=== PATIENT | female | born 1935 | race Caucasian/White ===

== ENCOUNTER 2017-04-12 13:25 | Inpatient (IN) | payer OTHER, MEDICARE ==
[2017-04-12] MEDS ORDERED: ACETAMINOPHEN 500 MG TAB PO ONE (14:11)
[2017-04-12] MEDS ORDERED: IPRATROPIUM/ALBUTEROL 3 ML DEYVIAL IH ONE (14:11)
--- NOTE | 2017-04-12 14:11 | EDPHY ---
H & P Time Seen by Provider: 04/12/17 13:54 HPI/ROS: Chief complaint. Cough, fever HPI. 81-year-old female presents emergency department with complaint of cough and some shortness of breath. She has had upper respiratory infection for the past several weeks. However today increased shortness of breath and fever. She tells me she has had a cough for 10 months. Now cough is slightly productive. No sore throat. Heaviness in her chest. Abdomen is slightly bloated for several months. No pain however vomiting or diarrhea. No sick contacts or recent travel. No history of lung problems other than the chronic cough ROS Constitutional. Fever and weakness Eyes. no problems with vision ENT. no sore throat, no nasal drainage Cardiovascular. Heaviness to chest Respiratory. Shortness of breath and cough Abdominal. no abdominal pain, no nausea/vomiting, no diarrhea . no problems urinating MS. no calf pain/swelling, no neck/back pain, no joint pain Skin. no rash Lymph. no swollen glands Neuro. no headache, no dizziness, no difficulty walking or with speech Past Medical/Surgical History: Coronary artery disease with stents Social History: , nonsmoker, no alcohol Smoking Status: Never smoked Physical Exam: General Appearance: Alert well-developed female moderate distress vital signs show temperature 38.3degrees, heart rate 122, O2 saturation room air 88%. Blood pressure 114/86 Eyes: Pupils equal and round no pallor or injection. ENT, pharynx mildly injected without exudate Respiratory: No retractions but inspiratory expiratory rhonchi Cardiovascular: Regular rate and rhythm with tachycardia Gastrointestinal: Abdomen is soft and nontender, no masses, bowel sounds normal. Neurological: Awake and alert, sensory and motor exams grossly normal. Skin: Warm and dry, no rashes. Musculoskeletal: Neck is supple nontender. Extremities symmetrical, full range of motion. Psychiatric: Patient is oriented X 3, there is no agitation. Constitutional: Initial Vital Signs Temperature (C) 38.3 C 04/12/17 13:31 Heart Rate 122 H 04/12/17 13:31 Respiratory Rate 20 04/12/17 13:31 Blood Pressure 114/86 H 04/12/17 13:31 O2 Sat (%) 88 L 04/12/17 13:31 O2 Delivery Mode Room Air Allergies/Adverse Reactions: No Known Allergies Allergy (Unverified 11/05/12 14:58) Home Medications: Medication Instructions Recorded Lipitor 04/12/17 Metoprolol Succinate 04/12/17 PRILOSEC 04/12/17 Plavix 04/12/17 Xalatan 04/12/17 Medical Decision Making - Diagnostics EKG Interpretation: EKG interpreted by me shows sinus tachycardia. Normal interval. Left axis deviation. QRS is otherwise normal. No significant ST elevation or depression. Rate is 127 Imaging Results: Chest x-ray interpreted by me shows right lower lobe infiltrate Procedures: IV normal saline, DuoNeb updraft. Sepsis workup ED Course/Re-evaluation: Severe sepsis declared at 2:35 p.m.--patient is given fluids. Repeat lactate is ordered. Rocephin and azithromycin IV are ordered I consulted and discussed the case with , hospitalist, who agrees to the admission I discussed the findings and treatment plan including recommendation patient for admission with patient and her family. They expressed understanding and agreement Differential Diagnosis: Patient has upper respiratory symptoms. She also had chest discomfort. She has fever and meet sepsis criteria with elevated lactate. I have considered pneumonia, bronchitis. I considered acute coronary syndrome as well - Data Points Laboratory Results: Laboratory Results 04/12/17 13:41 04/12/17 13:41 04/12/17 04/12/17 04/12/17 13:41 13:41 13:41 WBC RBC Hgb Hct MCV MCH MCHC RDW Plt Count MPV Neut % (Auto) Lymph % (Auto) Green % (Auto) Eos % (Auto) Baso % (Auto) Nucleat RBC Rel Count Absolute Neuts (auto) Absolute Lymphs (auto) Absolute Monos (auto) Absolute Eos (auto) Absolute Basos (auto) Absolute Nucleated RBC Immature Gran % Immature Gran # PT 14.1 SEC SEC (12.0-15.0) INR 1.12 (0.83-1.16) APTT 28.1 SEC SEC (23.0-38.0) VBG Lactic Acid Sodium 141 mEq/L mEq/L (134-144) Potassium 3.6 mEq/L mEq/L (3.5-5.2) Chloride 105 mEq/L mEq/L (97-110) Carbon Dioxide 21 mEq/l L mEq/l (22-31) Anion Gap 15 mEq/L mEq/L (8-16) BUN 20 mg/dL mg/dL (7-23) Creatinine 0.7 mg/dL mg/dL (0.6-1.0) Estimated GFR > 60 Glucose 173 mg/dL H mg/dL (70-100) Calcium 9.3 mg/dL mg/dL (8.5-10.4) Total Bilirubin 2.3 mg/dL H mg/dL (0.1-1.4) Conjugated Bilirubin Pending Unconjugated Bilirubin Pending Troponin I 0.029 ng/mL ng/mL (0.000-0.034) 04/12/17 04/12/17 13:41 13:41 WBC 16.42 10^3/uL H 10^3/uL (3.80-9.50) RBC 5.25 10^6/uL 10^6/uL (4.18-5.33) Hgb 16.5 g/dL H g/dL (12.6-16.3) Hct 47.7 % H % (38.0-47.0) MCV 90.9 fL fL (81.5-99.8) MCH 31.4 pg pg (27.9-34.1) MCHC 34.6 g/dL g/dL (32.4-36.7) RDW 12.5 % % (11.5-15.2) Plt Count 148 10^3/uL L 10^3/uL (150-400) MPV 11.8 fL H fL (8.7-11.7) Neut % (Auto) 91.5 % H % (39.3-74.2) Lymph % (Auto) 2.0 % L % (15.0-45.0) Green % (Auto) 5.8 % % (4.5-13.0) Eos % (Auto) 0.0 % L % (0.6-7.6) Baso % (Auto) 0.2 % L % (0.3-1.7) Nucleat RBC Rel Count 0.0 % % (0.0-0.2) Absolute Neuts (auto) 15.03 10^3/uL H 10^3/uL (1.70-6.50) Absolute Lymphs (auto) 0.33 10^3/uL L 10^3/uL (1.00-3.00) Absolute Monos (auto) 0.95 10^3/uL H 10^3/uL (0.30-0.80) Absolute Eos (auto) 0.00 10^3/uL L 10^3/uL (0.03-0.40) Absolute Basos (auto) 0.03 10^3/uL 10^3/uL (0.02-0.10) Absolute Nucleated RBC 0.00 10^3/uL 10^3/uL (0-0.01) Immature Gran % 0.5 % % (0.0-1.1) Immature Gran # 0.08 10^3/uL 10^3/uL (0.00-0.10) PT INR APTT VBG Lactic Acid 2.2 mmol/L H mmol/L (0.7-2.1) Sodium Potassium Chloride Carbon Dioxide Anion Gap BUN Creatinine Estimated GFR Glucose Calcium Total Bilirubin Conjugated Bilirubin Unconjugated Bilirubin Troponin I Medications Given: Discontinued Medications Acetaminophen (Tylenol) 1,000 mg PO EDNOW ONE Stop: 04/12/17 14:12 Last Admin: 04/12/17 14:22 Dose: 1,000 mg Albuterol/Ipratropium (Duoneb) 3 ml IH EDNOW ONE Stop: 04/12/17 14:12 Last Admin: 04/12/17 14:22 Dose: 3 ml Departure - Departure Disposition: [facility] Inpatient Acute Clinical Impression: Severe sepsis Pneumonia Qualifiers: Pneumonia type: due to unspecified organism Laterality: right Lung location: lower lobe of lung Qualified Code(s): J18.1 - Lobar pneumonia, unspecified organism Condition: Fair Referrals: IN,STATE [Other] - As per Instructions
[2017-04-12 14:12] LABS: % IMMATURE GRANULYOCYTES 0.5 % (0.0-1.1); ABSOLUTE IMMATURE GRANULOCYTES 0.08 10^3/uL (0.00-0.10); ADD DIFF? NO; ADD MORPH? NO; ADD SCAN? NO; ATYPICAL LYMPHOCYTE FLAG 0 (0-99); FRAGMENT RBC FLAG 0 (0-99); HEMATOCRIT 47.7 % (38.0-47.0); HEMOGLOBIN 16.5 g/dL (12.6-16.3); LEFT SHIFT FLG 10 (0-99); LIPEMIA HEMOLYSIS FLAG 90 (0-99); MEAN CELL HEMOGLOBIN 31.4 pg (27.9-34.1); MEAN CELL HEMOGLOBIN CONCENTR. 34.6 g/dL (32.4-36.7); MEAN CELL VOLUME 90.9 fL (81.5-99.8); MEAN PLATELET VOLUME 11.8 fL (8.7-11.7); PLATELET CLUMPS FLAG 0 (0-99); PLATELET COUNT 148 10^3/uL (150-400); RED BLOOD CELL COUNT 5.25 10^6/uL (4.18-5.33); RED CELL DISTRIBUTION WIDTH 12.5 % (11.5-15.2)
[2017-04-12 14:20] LABS: INR 1.12 (0.83-1.16); PROTIME(PATIENT) 14.1 SEC (12.0-15.0)
[2017-04-12 14:21] LABS: APTT 28.1 SEC (23.0-38.0)
--- NOTE | 2017-04-12 14:26 | CPEKG ---
Heart Rate: 127 RR Interval: 472 P-R Interval: 112 QRSD Interval: 76 QT Interval: 324 QTC Interval: 472 P [place]: -16 QRS [place]: 13 T Wave [place]: -44 EKG Severity - ABNORMAL ECG - EKG Impression: SINUS TACHYCARDIA EKG Impression: ATRIAL PREMATURE COMPLEX EKG Impression: PROBABLE INFERIOR INFARCT, AGE INDETERMINATE EKG Impression: CONSIDER POSTERIOR WALL INVOLVEMENT EKG Impression: REPOLARIZATION ABNORMALITY, PROB RATE RELATED EKG Impression: LATERAL LEADS ARE ALSO INVOLVED Electronically Signed By: Lino Jernigan 12-Apr-2017 15:02:18
[2017-04-12] MEDS ORDERED: NS 2,000 ML IV ONE (14:36)
[2017-04-12] MEDS ORDERED: AZITHROMYCIN IV 500 MG in NS 250 ML IV ONE (14:38)
[2017-04-12 14:40] LABS: ANION GAP 15 mEq/L (8-16); BILIRUBIN,TOTAL 2.3 mg/dL (0.1-1.4); CALCIUM 9.3 mg/dL (8.5-10.4); CARBON DIOXIDE 21 mEq/l (22-31); CHLORIDE 105 mEq/L (97-110); CREATININE 0.7 mg/dL (0.6-1.0); GLOMERULAR FILTRATION RATE > 60; GLUCOSE 173 mg/dL (70-100); POTASSIUM 3.6 mEq/L (3.5-5.2); SODIUM 141 mEq/L (134-144)
[2017-04-12 14:49] LABS: BILIRUBIN-CONJUGATED 0.7 mg/dL (0.0-0.5); BILIRUBIN-UNCONJUGATED 1.6 mg/dL (0.0-1.1)
[2017-04-12 18:34] LABS: TROPONIN I 0.035 ng/mL (0.000-0.034)
--- NOTE | 2017-04-12 20:25 | GHP ---
[f rep st] HISTORY AND PHYSICAL DATE OF ADMISSION: 04/12/2017 CHIEF COMPLAINT: Cough and shortness of breath. HISTORY: This patient is an 81-year-old female who has been suffering from an upper respiratory trac t infection for a couple of weeks. She actually complains of chronic cough since last June. She has had worsening congestion for the last 2 days. Daughter went to visit her this afternoon, and fo und her at home confused. She has a fever and new hoarse voice. She does complain of some chest tig htness, but she attributes this to the cough, and says it has been ongoing since she started coughing last June. Cough is nonproductive. PAST MEDICAL HISTORY: 1. Coronary artery disease, status post stents 2 years ago. 2. Breast cancer, status post lumpectomy and radiation. MEDICATIONS: Please see computer record for full detailed list. ALLERGIES: No known drug allergies. SOCIAL HISTORY: No smoking. Occasional alcohol. She lives with her . REVIEW OF SYSTEMS: Complete review of systems obtained. Review of systems is negative regarding con stitutional, HEENT, GI, pulmonary, cardiovascular, , hematology, skin, muscular, endocrine, psych. For positives, as under HPI. FAMILY HISTORY: Reviewed, noncontributory to presenting complaint. PHYSICAL EXAMINATION: GENERAL: Well-developed, well-nourished female, in no distress. VITAL SIGNS: Temperature 38.3, pulse 127, blood pressure 134/83, saturating 96% on 1 L. HEENT: Normal conjunct brian. Pupils react to light. Normal ears and nose. Hearing intact. Normal teeth. Oropharynx moist . NECK: Trachea midline. No thyromegaly. CHEST: Normal effort. LUNGS: Clear to auscultation bi laterally. CARDIOVASCULAR: Regular rhythm. No murmur. No lower extremity edema. ABDOMEN: Soft, nontender. No hepatosplenomegaly. SKIN: Warm, dry, intact. No rash. MUSCULOSKELETAL: No cyanosi s or clubbing. Strength 5/5, upper and lower extremities. NEUROLOGIC: Cranial nerves intact. Norm al sensation to light touch. PSYCH: She is confused. She is having a difficult time answering simp le questions. Poor judgment and insight. Poor memory. LABORATORY DATA: White count 16.42, hematocrit 47.7, platelets 148, sodium 141, potassium 3.6, chlor milton 105, bicarb 21, BUN 20, creatinine 0.7, glucose 173. Troponin was initially 0.29, the 2nd was 0. 035. Lactate initially 2.29 and 1.6. Total bilirubin 2.3. Unconjugated bilirubin 1.6. EKG viewed by me. My personal interpretation is sinus tachycardia, some inferior ST elevations and l ateral ST depressions. Chest x-ray, per my interpretation, personally viewed by me, there is a right lower lobe infiltrate. ASSESSMENT AND PLAN: 1. Pneumonia with severe sepsis. We will continue Rocephin and azithromycin. She received an appro priate IV fluid bolus in the emergency room. Her lactate is improving. 2. Metabolic encephalopathy. She is quite confused and not at her baseline. This is clearly due to her infection. 3. EKG changes with borderline troponin elevation. I did have Dr. Mata look at the EKGs to ensu re there was no acute myocardial infarction. He felt the EKGs are most consistent with an old inferi or myocardial infarction. He did not think anything more aggressive needed to be done at this time. We will continue her Plavix, statin, and metoprolol. 4. Coronary artery disease, status post previous stents. She follows with Dr. Lutz at [facility]. Please see plan as discussed above. CODE STATUS: Full. ADMISSION STATUS: Will admit to inpatient. Anticipate greater than 2 midnights, given severity of i llness on presentation. DVT PROPHYLAXIS: High risk. Will place on subcu Lovenox. /[id number]/MODL
[2017-04-12] MEDS ORDERED: FLU VACC QS 2017-18 (3YR+)/PF 0.5 ML SYR (FLUARIX QUAD) IM ONE (21:03)
[2017-04-12] MEDS: LATANOPROST 0.005% 2.5 ML OPHT DROPS EACHEYE SCH (21:19)
[2017-04-12] MEDS: FLUTICASONE NASAL 120 SPRAYS/16 GM MDI EACHNARE SCH (22:12)
--- NOTE | 2017-04-13 00:11 | PDMN ---
Medical Necessity Medical necessity: C/M review: est. > 2 MN LOS for eval and TX of acute and persistent pneumonia with severe sepsis, metabolic encephalopathy, EKG changes with borderline troponin elevation requiring ongoing cardiac monitoring, IV antibiotics, acute inpt PT/OT/ST, comorbid CAD S/P stents, hx breast cancer S/P lumpectomy and radiation.
[2017-04-13] MEDS ORDERED: ALBUTEROL 3 ML DEYVIAL IH PRN (00:18)
[2017-04-13 05:52] LABS: % IMMATURE GRANULYOCYTES 0.3 % (0.0-1.1); ABSOLUTE IMMATURE GRANULOCYTES 0.03 10^3/uL (0.00-0.10); ADD DIFF? NO; ADD MORPH? NO; ADD SCAN? NO; ATYPICAL LYMPHOCYTE FLAG 10 (0-99); FRAGMENT RBC FLAG 0 (0-99); HEMATOCRIT 42.7 % (38.0-47.0); HEMOGLOBIN 14.3 g/dL (12.6-16.3); LEFT SHIFT FLG 10 (0-99); LIPEMIA HEMOLYSIS FLAG 80 (0-99); MEAN CELL HEMOGLOBIN 31.8 pg (27.9-34.1); MEAN CELL HEMOGLOBIN CONCENTR. 33.5 g/dL (32.4-36.7); MEAN CELL VOLUME 94.9 fL (81.5-99.8); MEAN PLATELET VOLUME 11.4 fL (8.7-11.7); PLATELET CLUMPS FLAG 0 (0-99); PLATELET COUNT 114 10^3/uL (150-400); RED CELL DISTRIBUTION WIDTH 12.5 % (11.5-15.2)
[2017-04-13 06:08] LABS: ALANINE AMINOTRANSFERASE 31 IU/L (9-52); ALBUMIN 3.4 g/dL (3.5-5.0); ALKALINE PHOSPHATASE 55 IU/L (38-126); ANION GAP 9 mEq/L (8-16); ASPARTATE AMINOTRANSFERASE 37 IU/L (14-46); BILIRUBIN,TOTAL 1.6 mg/dL (0.1-1.4); BILIRUBIN-CONJUGATED 0.4 mg/dL (0.0-0.5); BILIRUBIN-UNCONJUGATED 1.2 mg/dL (0.0-1.1); CALCIUM 8.7 mg/dL (8.5-10.4); CARBON DIOXIDE 24 mEq/l (22-31); CHLORIDE 109 mEq/L (97-110); CHOLESTEROL 132 mg/dL (140-220); CREATININE 0.7 mg/dL (0.6-1.0); GLOMERULAR FILTRATION RATE > 60; GLUCOSE 103 mg/dL (70-100); HIGH DENSITY LIPOPROTEIN 55 mg/dL (40-85); LDL/HDL RATIO 1.11 RATIO (1.00-3.22); LOW DENSITY LIPOPROTEIN 61 mg/dL (80-100); NON-HIGH DENSITY LIPOPROTEIN 77 mg/dL (90-129); POTASSIUM 3.8 mEq/L (3.5-5.2); SODIUM 142 mEq/L (134-144); TOTAL PROTEIN 5.9 g/dL (6.3-8.2); TRIGLYCERIDE 80 mg/dL (35-135); VERY LOW DENSITY LIPOPROTEINS 16 mg/dL (8-25)
[2017-04-13 06:19] LABS: TROPONIN I 0.063 ng/mL (0.000-0.034)
[2017-04-13] MEDS: ENOXAPARIN 40 MG/0.4 ML SYR SC SCH (07:47)
[2017-04-13] MEDS: CLOPIDOGREL BISULFATE 75 MG TAB PO SCH (07:48)
[2017-04-13] MEDS: ATORVASTATIN CALCIUM 20 MG TAB PO SCH (07:48)
[2017-04-13] MEDS: METOPROLOL SUCCINATE XR 50 MG TAB PO SCH (07:48)
[2017-04-13] MEDS: FLUTICASONE NASAL 120 SPRAYS/16 GM MDI EACHNARE SCH ×2 (07:49→20:33)
[2017-04-13] MEDS ORDERED: NON-FORMULARY NEW DRUG (Omeprazole [Omeprazole] 40 MG) PO SCH (09:00)
[2017-04-13] MEDS ORDERED: PANTOPRAZOLE SODIUM 40 MG TAB PO SCH (09:00)
[2017-04-13] MEDS: AZITHROMYCIN IV 500 MG in D5W 250 ML IV SCH (09:30)
--- NOTE | 2017-04-13 12:04 | HOSPPROG ---
Hospitalist Progress Note Assessment/Plan: Mena 81-year-old female who has been suffering from an upper respiratory infection for the last several weeks. She has had a chronic cough since last June. Her daughter went to visit her and found her mom to be confused. Today is my 1st encounter with the patient chart reviewed * pneumonia present on admission with sepsis/possibly an aspiration She is on Rocephin and azithromycin Had an elevated lactate on admission/better after hydration PCR is positive for rhino virus/enterovirus Will place in droplet precautions Chest x-ray shows a right lower lobe infiltrate will ask speech therapy to evaluate for any chance of aspiration will check a procalcitonin level to help determine treatment *cough since last June poss from GERD/increase PPI to bid will order Tessalon Perls * metabolic encephalopathy Suspect this was from her pneumonia she is back to her baseline * EKG a changes with borderline elevated troponin This was evaluated by the project management specialist who felt that this was an old inferior myocardial infarction has no chest pain * coronary artery disease * low TSH This should get rechecked in 6 weeks for followup *DVT prophylaxis: LMWH Subjective: eMna is feeling better, but coughing frequently. Objective: Vital Signs Temp Pulse Resp BP Pulse Ox 36.8 C 63 21 H 100/72 90 L 04/13/17 11:26 04/13/17 11:26 04/13/17 11:26 04/13/17 11:26 04/13/17 11:26 Laboratory Results 04/13/17 05:44 04/13/17 05:44 04/12/17 04/13/17 04/14/17 05:59 05:59 05:59 Intake Total 2500 Balance 2500 PT 14.1 SEC (12.0-15.0) 04/12/17 13:41 INR 1.12 (0.83-1.16) 04/12/17 13:41 - Physical Exam Constitutional: no apparent distress, appears nourished, not in pain Eyes: PERRL Ears, Nose, Mouth, Throat: hearing normal Cardiovascular: regular rate and rhythym Respiratory: bronchial breath sounds, rhonchi, No no rales or rhonchi Gastrointestinal: normoactive bowel sounds Skin: warm, normal color Musculoskeletal: full muscle strength Neurologic: AAOx3 Psychiatric: interacting appropriately ICD10 Worksheet Patient Problems: Problems Problem Status Onset Pneumonia Acute Severe sepsis Acute
[2017-04-13] MEDS: IPRATROPIUM/ALBUTEROL 3 ML DEYVIAL IH SCH ×2 (15:02→22:02)
[2017-04-13] MEDS ORDERED: BENZONATATE 100 MG CAP PO PRN (15:04)
--- NOTE | 2017-04-13 15:12 | CPEKG ---
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
--- NOTE | 2017-04-13 16:34 | ASMTCMCOM ---
CM Note CM Note Notes: Pt was admitted with PNA/sepsis. She lives with her in a 55+ community. PT has cleared. Per hospitalist, her lungs sound "awful." Perhaps a f/u with therapies to rule out need for homecare or SNF? Anticipate d/c home with no CM needs but will continue to follow for any unanticipated needs. Date Signed: 04/13/2017 04:33 PM Electronically Signed By:BURAK Barillas
[2017-04-13] MEDS ORDERED: NS W/ 20 KCl/L 1,000 ML IV SCH (18:45)
[2017-04-13] MEDS: PANTOPRAZOLE SODIUM 40 MG TAB PO SCH (20:33)
[2017-04-13] MEDS: LATANOPROST 0.005% 2.5 ML OPHT DROPS EACHEYE SCH (20:35)
[2017-04-14] MEDS: IPRATROPIUM/ALBUTEROL 3 ML DEYVIAL IH SCH ×4 (06:27→22:03)
--- NOTE | 2017-04-14 10:15 | ECHO ---
[email or web address] [address] [address] Main: [phone] Fax: [email or web address] Echocardiogram Name: DAVID MUNROE MR#: [id number] Study Date: 04/14/2017 Study Time: 07:45 AM Date of : 1935 Age: 81 year(s) Height: 167.6 cm (66 in.) Weight: 68.04 kg (150 lb.) BSA: 1.77 m2 Gender: Female Examination: Indication: bump in troponin h/o two stents Image Quality: Adequate Contrast: Requested by: Sanaz Stewart BP: / Heart Rate: Rhythm: Normal sinus rhythm Indication: bump in troponin h/o two stents Procedure Staff Chemical Weigher: Nichole Downey Reading Physician: Khai Mittal Requesting Provider: Eulalia Stewart Conclusions: Normal global systolic LV function. Mild mitral valve regurgitation is present. Mild to moderate aortic valve regurgitation. Measurements: Chambers Valvular Assessment AV/MV Valvular Assessment TV/PV Normal Normal Normal Name Value Range Name Value Range Name Value Range Ao Raquel (2D): 3.0 cm (1.4 cm-2.6 AV Vmax: 1.34 m/s (1 m/s-1.7 TR Vmax: 2.69 mm/s ( - ) cm) m/s) TR PGmax: 29 mmHg ( - ) IVSd (2D): 0.9 cm (0.6 cm-1.1 AV maxP mmHg ( - ) syst. PAP: 39 mmHg ( - ) cm) LVOT Vmax: 0.87 m/s (0.7 m/s-1.1 PV Vmax: 0.52 m/s (0.6 m/s-0.9 LVDd (2D): 4.9 cm (3.9 cm-5.3 m/s) m/s) cm) AR (PHT): 637 ms ( - ) PV PGmax: 1 mmHg ( - ) LVDs (2D): 2.9 cm (2.1 cm-4 MV E Vmax: 0.89 m/s ( - ) cm) MV A Vmax: 0.95 m/s ( - ) LVPWd (2D): 1.2 cm ( - ) MV E/A: 0.94 ( - ) LVEF (BP): 69 % (>=55 %) RVDd(2D): 3.5 cm (1.9 cm-3.8 cmmm) Continued Measurements: Chambers Valvular Assessment AV/MV Valvular Assessment TV/PV Name Value Name Value Name Value LADs Lon.2 cm MV DecTime: 176 m/s CVP (est.): 10 mmHg LA Area: 26.6 cm2 MV E' Septal: 0.06 m/s MV E/E' Septal: 15.80 AR Vmax: 4.46 cm/s Patient: DAVID MUNROE Study Date: 04/14/2017 Page 1 of 2 07:45 AM Additional Vessels Name Value Ao Ascendin.0 cm Findings: Left Ventricle: Normal size left ventricle. No LV hypertrophy. Normal global systolic LV function. EF is 69 %. No regional wall motion abnormality. Grade 1 diastolic dysfunction (abnormal relaxation). Right Ventricle: Normal size right ventricle. Normal RV function. Left Atrium: The left atrium is mildly to moderately dilated. Right Atrium: The right atrium is mildly to moderately dilated. Mitral Valve: There is mild thickening of the mitral valve leaflets. Mild mitral valve regurgitation is present. Aortic Valve: The aortic valve is normal in appearance and function. The aortic valve is tri-leaflet. Mild to moderate aortic valve regurgitation. Tricuspid Valve: The tricuspid valve is normal in appearance and function. Mild to moderate tricuspid valve regurgitation. The pulmonary artery pressure is mildly increased. Pulmonic Valve: The pulmonic valve is normal in appearance and function. Moderate pulmonic valve regurgitation is noted. Aorta: The aorta is normal. Pericardium: Small pericardial effusion. There is a pleural effusion present. (No Signature Object) Patient: DAVID MUNROE Study Date: 04/14/2017 Page 2 of 2 07:45 AM [id number]
[2017-04-14] MEDS: CLOPIDOGREL BISULFATE 75 MG TAB PO SCH (10:16)
[2017-04-14] MEDS: PANTOPRAZOLE SODIUM 40 MG TAB PO SCH ×2 (10:16→20:25)
[2017-04-14] MEDS: ATORVASTATIN CALCIUM 20 MG TAB PO SCH (10:17)
[2017-04-14] MEDS: METOPROLOL SUCCINATE XR 50 MG TAB PO SCH (10:17)
[2017-04-14] MEDS: ENOXAPARIN 40 MG/0.4 ML SYR SC SCH (10:18)
[2017-04-14] MEDS: FLUTICASONE NASAL 120 SPRAYS/16 GM MDI EACHNARE SCH ×2 (10:19→20:25)
[2017-04-14] MEDS: AZITHROMYCIN IV 500 MG in D5W 250 ML IV SCH (11:15)
--- NOTE | 2017-04-14 13:01 | HOSPPROG ---
Hospitalist Progress Note Assessment/Plan: Mena 81-year-old female who has been suffering from an upper respiratory infection for the last several weeks. She has had a chronic cough since last June. Her daughter went to visit her and found her mom to be confused. Today is my 1st encounter with the patient chart reviewed * pneumonia present on admission with sepsis She is on Rocephin and azithromycin Had an elevated lactate on admission/better after hydration PCR is positive for rhino virus/enterovirus Will place in droplet precautions Chest x-ray shows a right lower lobe infiltrate Speech therapy did not note any aspiration Procalcitonin level is elevate at 0.56/likely a bacterial infection *cough since last June poss from GERD/increase PPI to bid will order Robin Ontiveros encouraged her to f/u with a counter top maker * metabolic encephalopathy Suspect this was from her pneumonia she is back to her baseline * EKG a changes with borderline elevated troponin This was evaluated by the trolley cleaner who felt that this was an old inferior myocardial infarction has no chest pain reviewed echo report which shows EF 69%, mild to mod dilated left and right atriums * coronary artery disease * low TSH This should get rechecked in 6 weeks for followup *DVT prophylaxis: LMWH Subjective: Mena is feeling better, but has ongoing coughing bouts. Objective: Vital Signs Temp Pulse Resp BP Pulse Ox 36.8 C 65 18 147/66 H 92 04/14/17 11:33 04/14/17 11:33 04/14/17 11:33 04/14/17 11:33 04/14/17 11:33 Laboratory Results 04/13/17 05:44 04/13/17 05:44 04/13/17 04/14/17 04/15/17 05:59 05:59 05:59 Intake Total 2500 890 Balance 2500 890 PT 14.1 SEC (12.0-15.0) 04/12/17 13:41 INR 1.12 (0.83-1.16) 04/12/17 13:41 - Physical Exam Constitutional: no apparent distress, appears nourished, not in pain Eyes: PERRL Ears, Nose, Mouth, Throat: hearing normal Cardiovascular: regular rate and rhythym Respiratory: rhonchi (scattered throughout) Gastrointestinal: normoactive bowel sounds Skin: warm Musculoskeletal: no muscle tenderness Neurologic: AAOx3 Psychiatric: interacting appropriately ICD10 Worksheet Patient Problems: Problems Problem Status Onset Pneumonia Acute Severe sepsis Acute
[2017-04-14] MEDS: LATANOPROST 0.005% 2.5 ML OPHT DROPS EACHEYE SCH (20:24)
[2017-04-15 03:27] VITALS: O2SAT 92
[2017-04-15] MEDS: IPRATROPIUM/ALBUTEROL 3 ML DEYVIAL IH SCH (06:03)
[2017-04-15] MEDS: ENOXAPARIN 40 MG/0.4 ML SYR SC SCH (08:03)
[2017-04-15] MEDS: METOPROLOL SUCCINATE XR 50 MG TAB PO SCH (08:04)
[2017-04-15] MEDS: PANTOPRAZOLE SODIUM 40 MG TAB PO SCH (08:04)
[2017-04-15] MEDS: CLOPIDOGREL BISULFATE 75 MG TAB PO SCH (08:06)
[2017-04-15] MEDS: ATORVASTATIN CALCIUM 20 MG TAB PO SCH (08:06)
[2017-04-15 08:09] VITALS: RESP 20; TEMP 98.1
[2017-04-15 08:27] VITALS: BP 147/73; PULSE 67
[2017-04-15] MEDS: FLUTICASONE NASAL 120 SPRAYS/16 GM MDI EACHNARE SCH (09:42)
[2017-04-15] MEDS: AZITHROMYCIN IV 500 MG in D5W 250 ML IV SCH (09:42)
[2017-04-15] MEDS ORDERED: ALBUTEROL 60 PUFFS/8 GM MDI IH PRN (10:39)
[2017-04-15] MEDS ORDERED: guaiFENesin 600 MG TAB.ER PO SCH (10:45)
[2017-04-15] MEDS ORDERED: predniSONE 20 MG TAB PO SCH (10:45)
[2017-04-15] MEDS ORDERED: ALBUTEROL 200 PUFFS/18 GM MDI IH PRN (10:45)
--- NOTE | 2017-04-15 11:39 | ASMTCMCOM ---
CM Note CM Note Notes: CM met w/ pt and family for dispo planning. OT is recommending HC. Pt and family does not think that HC is needed at this time. Pt will d/c independent w/ supportive family. Transitional care is following pt. CM available for changes. Date Signed: 04/15/2017 11:39 AM Electronically Signed By:JASPAL Angela
--- NOTE | 2017-04-15 12:21 | ASDISCHSUM ---
Discharge Information Plan Status:Home with No Needs Medically Cleared to Leave:04/15/2017 Discharge Date:04/15/2017 11:53 AM CM D/C Disposition:Home, Routine, Self-Care ADT D/C Disposition:Home, Routine, Self-Care Projected Discharge Date:04/15/2017 12:00 AM Transportation at D/C: Discharge Delay Reason: Follow-Up Date:04/15/2017 12:00 AM Discharge Slot: Final Diagnosis: Placement Information Patient Contact Information Contact Name:POLY Relationship: Address:[address] [place] [address] Work Phone: City:[place] Phone: [facility]/Zip Code:[place] [address] Email: Financial Information Financial Class: Primary Plan Desc:MEDICARE INPATIENT Primary Plan Number:[id number] Secondary Plan Desc:[employer]/MDR SUPPLEMENT Secondary Plan Number:[id number] Assessment Information [facility] CM Progress Note CM Note CM Note Notes: Pt was admitted with PNA/sepsis. She lives with her in a 55+ community. PT has cleared. Per hospitalist, her lungs sound "awful." Perhaps a f/u with therapies to rule out need for homecare or SNF? Anticipate d/c home with no CM needs but will continue to follow for any unanticipated needs. Date Signed: 04/13/2017 04:33 PM Electronically Signed By:BURAK Barillas [facility] CM Progress Note CM Note CM Note Notes: CM met w/ pt and family for dispo planning. OT is recommending HC. Pt and family does not think that HC is needed at this time. Pt will d/c independent w/ supportive family. Transitional care is following pt. CM available for changes. Date Signed: 04/15/2017 11:39 AM Electronically Signed By:JASPAL Angela Intervention Information Intervention Type:*IM-Signed Date of Service:04/15/2017 11:26 AM Patient Type:Inpatient Staff Member:Lisa Chester Hours: Discipline: Severity: Comment:
--- NOTE | 2017-04-15 17:26 | PDDCSUM ---
Discharge Summary Discharge Summary: DISCHARGE SUMMARY FOLLOW-UP ITEMS: Blood cultures pending at time of discharge DATE OF ADMISSION: 04/12/2017 DATE OF DISCHARGE: 04/15/2007 DISCHARGE DIAGNOSES: 1. Severe Sepsis present on admission 2. Pneumonia present on admission 3. Acute toxic and metabolic encephalopathy 4. Transient myocardial ischemia 5. Rhinovirus and enterovirus infection 6. Acute reactive airway exacerbation 7. Acute metabolic acidosis CONSULTATIONS: None PROCEDURES / IMAGING: Echocardiogram demonstrating normal ejection fraction, diastolic dysfunction, small pericardial effusion comma chest x-ray demonstrating right lower lobe pneumonia CHIEF COMPLAINT: Acute encephalopathy, general malaise, cough SUBJECTIVE: Patient is feeling well at time discharge, she is requesting discharge home PHYSICAL EXAM ON DISCHARGE: 92% on room air, systolic blood pressure 130, heart rate 70, afebrile overnight , alert awake oriented x3, concentration 7/7, facial symmetry, there are bilateral bronchial breath sounds on expiration, faint inspiratory crackles in the right base, heart rhythm is regular, 2/6 systolic murmur at the sternum, no lower extremity edema LABS ON DISCHARGE: White blood cell count 10,400, creatinine 0.7 HOSPITAL COURSE BY PROBLEM: 1. Severe Sepsis present on admission. Evidenced by autonomic dysregulation in the setting of infection, meeting all ICDS-2 criteria including lactic acidosis , leukocytosis with white blood cell count 62224, tachypnea respiratory 24, tachycardia heart rate of 122, mental status changes and transient myocardial ischemia in the setting of pneumonia. She received IV fluids, empiric IV antibiotics, and all the above improved. 2. Right lower lobe pneumonia present on admission. Most likely bacterial, with a procalcitonin level of 0.56 and focal lobar infiltrate, received IV ceftriaxone and azithromycin, adjusted to oral levofloxacin at the time of discharge to complete a total of 5 days of antibiotic therapy, 2 subsequent days to be completed. 3. Acute reactive airway exacerbation. Evidenced by diffuse bronchial breath sounds, most likely provoked by pneumonia, patient requiring steroids, duo nebs , and albuterol inhaler time of discharge. She will complete a total 5 day course of prednisone. 4. Acute toxic and metabolic encephalopathy. Evidenced by global brain dysfunction characterized as confusion, disorientation, poor ability to focus and concentrate, all of which are an acute change from the patient from her baseline, per her son who is very familiar with her mental status. This is most likely secondary to the metabolic effects of lactic acidosis as well as the toxic effects of infection. After treatment of the above, patient's mental status returned to baseline. The patient's son does have some concerns that she may be developing some mild cognitive impairment and I recommended that they follow up with her primary care provider for outpatient mini-mental status exam. 5. Metabolic acidosis. Acute, secondary to lactic acid in the setting of infection and sepsis, with IV fluids and treatment of above. 6. Transient myocardial ischemia. Secondary to severe sepsis, supply demand mismatch, echocardiogram demonstrates no focal wall motion abnormalities, continue medications for chronic coronary artery disease. 7. Rhinovirus and enterovirus infection. Most likely concomitant findings, most likely not driving patient's bacterial pneumonia, responded supportive care. DISCHARGE MEDICATIONS: Please see official discharge medication reconciliation sheet in chart , levofloxacin 750 mg daily x2 days, prednisone 40 mg daily x4 days, albuterol inhaler as needed, Tessalon Perles as needed, Mucinex schedule, Continue other home medications. DISCHARGE INSTRUCTIONS: Please follow up with primary care provider in 3-5 days. TIME SPENT: Greater than 30 minutes were spent on direct patient care, as well as discharge planning and preparation.
== END 2017-04-15 11:53 | disposition home or self-care (01) | DRG 871 ==
LOC: CED 13:25 → CEDHOLD 14:47 → F3E 17:19
PROVIDERS: ADMIT Internal Medicine; ATTEND Internal Medicine
DX: A41.9 Sepsis, unspecified organism (principal); R65.20 Severe sepsis without septic shock; J18.9 Pneumonia, unspecified organism; G92 Toxic encephalopathy; E87.2 Acidosis; I25.6 Silent myocardial ischemia; J45.901 Unspecified asthma with (acute) exacerbation; I25.10 Atherosclerotic heart disease of native coronary artery without angina pectoris; Z95.5 Presence of coronary angioplasty implant and graft; Z85.3 Personal history of malignant neoplasm of breast; Z92.3 Personal history of irradiation
CPT/HCPCS: 71020-PO; 80048-PO; 82247-PO; 82248-PO; 83605-PO; 84484-PO; 85025-PO; 85610-PO; 85730-PO; 92610-GN; 96374; 97161-GP; 97165-GO; G0008; G8978-GP-CI; G8979-GP-CI; G8980-GP-CI; G8987-GO-CI; G8988-GO-CI; G8996-GN-CH; G8997-GN-CH; G8998-GN-CH; J0456; J0696; J1650